=== PATIENT | male | born 1985 | race Caucasian/White ===

== ENCOUNTER 2020-12-15 03:47 | Emergency (ER) | payer MEDICARE ==
[~2020-12-15] VITALS: Ht 172.7 cm; Wt 77.1 kg
[2020-12-15] MEDS ORDERED: CEFDINIR300 MG PO (04:36)
[2020-12-15] MEDS ORDERED: BACTRIM DS TAB1 EACH PO (04:40)
== END 2020-12-15 04:45 | disposition home or self-care (01) ==
LOC: ED 03:47
DX: L03.213 Periorbital cellulitis (principal)
CPT/HCPCS: 99283